=== PATIENT | male | born 1980 | race Caucasian/White ===

== ENCOUNTER 2018-06-14 22:23 | Emergency (ER) | payer OTHER ==
[~2018-06-14] VITALS: Ht 167.6 cm; Wt 70.3 kg
[~2018-06-14 22:23] MED LIST: Augmentin 875-1 EACH PO; HYDACE5 PO; IBUP600 PO; IBUP800 PO; LORA1 PO; MARIJUANA; META800 PO; NAPR500 PO; NAPR550 PO; Norco 5-325 Ta1 EACH PO; Ocuflox5 ML RIGHTEYE; PRED20 PO; QUET300 PO; Robaxin500 MG PO; SERT50 PO
[2018-06-14 23:09] LABS: Source, Urine Clean Catch
[2018-06-14 23:12] LABS: BASOPHILS ABSOLUTE AUTO 0.02 K/mm3 (0.00-0.23); BASOPHILS PERCENT AUTO 0 % (0-2); EOSINOPHILS ABSOLUTE AUTO 0.06 K/mm3 (0.00-0.68); EOSINOPHILS PERCENT AUTO 1 % (0-6); Hematocrit 44.6 % (37.0-53.0); Hemoglobin 14.8 g/dL (13.5-17.5); IMMATURE GRAN ABSOLUTE AUTO 0.01 K/mm3 (0.00-0.10); IMMATURE GRAN PERCENT AUTO 0 % (0-1); LYMPHOCYTES ABSOLUTE AUTO 0.93 K/mm3 (0.84-5.20); LYMPHOCYTES PERCENT AUTO 18 % (21-46); MONOCYTES ABSOLUTE AUTO 0.63 K/mm3 (0.16-1.47); MONOCYTES PERCENT AUTO 12 % (4-13); Mean Corpuscular HGB 33.4 pg (26.0-34.0); Mean Corpuscular HGB Conc 33.2 g/dL (31.5-36.5); Mean Corpuscular Volume 101 fL (80-100); Mean Platelet Volume 9.4 fL (9.1-12.4); NEUTROPHILS ABSOLUTE AUTO 3.56 K/mm3 (1.96-9.15); NEUTROPHILS PERCENT AUTO 68 % (41-73); Platelet Count 125 K/mm3 (150-400); RDW Coefficient Variation 12.4 % (11.7-14.2); RDW Standard Deviation 46.9 fL (35.1-46.3); Red Blood Cell Count 4.43 M/mm3 (4.30-5.90); White Blood Cell Count 5.21 K/mm3 (4.00-11.30)
[2018-06-14 23:14] LABS: Bilirubin, Urine Neg (Neg); Blood, Urine 2+ (Neg); Glucose Qualitative, Urine Neg (Neg); Ketones, Urine Neg (Neg); Leukocyte Esterase, Urine Neg (Neg); Nitrite, Urine Neg (Neg); Protein, Urine Neg (Neg); Urobilinogen, Urine NORM (Normal)
[2018-06-14 23:17] LABS: Appearance, Urine Clear (Clear); Color, Urine Yellow (P-Yellow)
[2018-06-14 23:22] LABS: Bacteria Not Seen /hpf; Red Blood Cells, Urine 0-2 /hpf (0-2); Squamous Epithelial Cells Few /hpf (Few); White Blood Cells, Urine Not Seen /hpf (0-5)
[2018-06-14 23:23] LABS: U Amphetamine Screen Not Detected; U Barbituate Screen Not Detected; U Benzodiazapine Screen Not Detected; U Buprenorphine Screen Not Detected; U Cannabinoids Screen Not Detected; U Cocaine Screen Not Detected; U Methadone Screen Not Detected; U Methamphetamine Screen Not Detected; U Opiates Screen Not Detected; U Oxycodone Screen Not Detected; U Phencyclidine Screen Not Detected; U Propoxyphene Screen Not Detected
[2018-06-14 23:34] LABS: Alanine Aminotransfer (ALT/SGP 53 U/L (12-78); Albumin/Globulin Ratio 1.1 (0.8-1.8); Alk Phos 86 U/L (50-136); Anion Gap 12 mmol/L (6-16); Aspartate Aminotrans (AST/SGOT 83 U/L (12-37); Bilirubin, Total 0.2 mg/dL (0.1-1.0); Blood Urea Nitrogen 6 mg/dL (8-24); Bun/Creatinine Ratio 7.1 (12.0-20.0); CO2, Blood 22 mmol/L (21-32); Calcium, Blood 8.1 mg/dL (8.5-10.1); Chloride, Blood 104 mmol/L (98-108); Creatinine, Blood 0.84 mg/dL (0.60-1.20); Globulin, Blood 3.6 g/dL (2.2-4.0); Glomerular Filtration Rate >60 (60-); Glucose, Blood 86 mg/dL (70-99); Potassium, Blood 4.1 mmol/L (3.5-5.5); Sodium, Blood 138 mmol/L (136-145); Total Protein, Blood 7.6 g/dL (6.4-8.2)
[2018-06-14 23:39] LABS: Ethanol (Alcohol), Blood, Med 336 mg/dL
== END 2018-06-15 01:33 | disposition home or self-care (01) ==
LOC: ER 22:23
PROVIDERS: Emergency Medicine
DX: F10.10 Alcohol abuse, uncomplicated (principal); F32.9 Major depressive disorder, single episode, unspecified; F41.9 Anxiety disorder, unspecified; R53.81 Other malaise; Y90.8 Blood alcohol level of 240 mg/100 ml or more; Z87.891 Personal history of nicotine dependence
CPT/HCPCS: 80053; 81001; 83690; 85025; 99283; G0480

== ENCOUNTER 2019-11-04 21:44 | Emergency (ER) | payer OTHER ==
[~2019-11-04] VITALS: Ht 165.1 cm; Wt 69.8 kg
== END 2019-11-04 22:14 ==
LOC: ER 21:44
DX: S01.01XA Laceration without foreign body of scalp, initial encounter (principal); W22.8XXA Striking against or struck by other objects, initial encounter
CPT/HCPCS: 12001; 99283-25

== ENCOUNTER 2019-11-19 11:21 | Emergency (ER) | payer OTHER ==
[~2019-11-19] VITALS: Ht 165.1 cm; Wt 70.3 kg
[2019-11-19] MEDS ORDERED: Amoxicillin500 MG PO (12:04)
== END 2019-11-19 12:12 | disposition home or self-care (01) ==
LOC: ER 11:21
DX: S01.312A Laceration without foreign body of left ear, initial encounter (principal); F41.9 Anxiety disorder, unspecified; F32.9 Major depressive disorder, single episode, unspecified; Z87.891 Personal history of nicotine dependence; Z79.2 Long term (current) use of antibiotics; Y04.0XXA Assault by unarmed brawl or fight, initial encounter
CPT/HCPCS: 99282

== ENCOUNTER 2024-11-12 00:41 | Inpatient (IN) | payer OTHER ==
[~2024-11-12] VITALS: Ht 165.1 cm; Wt 60.1 kg
[~2024-11-12 00:41] MED LIST changes: +Amoxicillin500 MG PO; +BACTRIM DS TAB1 EAC1 PO
[2024-11-12] MEDS ORDERED: FentaNYL Citrate 50 MCG/ML 2 ML Injection IV ONE (01:00)
[2024-11-12 01:14] LABS: BASOPHILS ABSOLUTE AUTO 0.01 K/mm3 (0.00-0.23); BASOPHILS PERCENT AUTO 0 % (0-2); EOSINOPHILS PERCENT AUTO 0 % (0-6); Hematocrit 32.2 % (37.0-53.0); Hemoglobin 11.4 g/dL (13.5-17.5); IMMATURE GRAN ABSOLUTE AUTO 0.04 K/mm3 (0.00-0.10); IMMATURE GRAN PERCENT AUTO 0 % (0-1); LYMPHOCYTES ABSOLUTE AUTO 0.31 K/mm3 (0.84-5.20); LYMPHOCYTES PERCENT AUTO 3 % (21-46); MONOCYTES ABSOLUTE AUTO 0.75 K/mm3 (0.16-1.47); MONOCYTES PERCENT AUTO 8 % (4-13); Mean Corpuscular HGB 34.5 pg (26.0-34.0); Mean Corpuscular HGB Conc 35.4 g/dL (31.5-36.5); Mean Corpuscular Volume 98 fL (80-100); Mean Platelet Volume 12.3 fL (9.1-12.4); NEUTROPHILS PERCENT AUTO 89 % (41-73); RDW Coefficient Variation 14.5 % (11.7-14.2); RDW Standard Deviation 52.3 fL (35.1-46.3); White Blood Cell Count 9.61 K/mm3 (4.00-11.30)
[2024-11-12 01:36] LABS: Platelet Count 27 K/mm3 (150-400)
[2024-11-12 02:00] LABS: Albumin, Blood 3.6 g/dL (3.4-5.0); Bilirubin, Total 1.2 mg/dL (0.1-1.0); Bun/Creatinine Ratio 9.9 (12.0-20.0); Calcium, Blood 7.8 mg/dL (8.5-10.1); Creatinine, Blood 1.11 mg/dL (0.60-1.20); Globulin, Blood 3.5 g/dL (2.2-4.0); Total Protein, Blood 7.1 g/dL (6.4-8.2)
[2024-11-12] MEDS ORDERED: Acetaminophen 325 MG TABLET PO PRN (02:35)
[2024-11-12] MEDS ORDERED: FentaNYL Citrate 50 MCG/ML 2 ML Injection IV PRN (02:35)
[2024-11-12] MEDS ORDERED: Naloxone HCl 0.4MG / ML 1ML Vial IV PRN (02:35)
[2024-11-12] MEDS ORDERED: Ondansetron HCl 2 MG / ML 2ML Vial IV PRN (02:35)
[2024-11-12] MEDS ORDERED: OxyCODONE HCL 5 MG TAB PO PRN (02:35)
[2024-11-12] MEDS ORDERED: NS 1,000 ML IV SCH (03:00)
[2024-11-12 04:08] VITALS: BP 137/94
[2024-11-12 04:36] LABS: BASOPHILS ABSOLUTE AUTO 0.01 K/mm3 (0.00-0.23); BASOPHILS PERCENT AUTO 0 % (0-2); EOSINOPHILS PERCENT AUTO 0 % (0-6); Hematocrit 32.8 % (37.0-53.0); Hemoglobin 11.7 g/dL (13.5-17.5); IMMATURE GRAN ABSOLUTE AUTO 0.02 K/mm3 (0.00-0.10); IMMATURE GRAN PERCENT AUTO 0 % (0-1); LYMPHOCYTES ABSOLUTE AUTO 0.62 K/mm3 (0.84-5.20); LYMPHOCYTES PERCENT AUTO 7 % (21-46); MONOCYTES PERCENT AUTO 9 % (4-13); Mean Corpuscular HGB 34.3 pg (26.0-34.0); Mean Corpuscular HGB Conc 35.7 g/dL (31.5-36.5); Mean Corpuscular Volume 96 fL (80-100); Mean Platelet Volume 10.9 fL (9.1-12.4); NEUTROPHILS ABSOLUTE AUTO 7.93 K/mm3 (1.96-9.15); NEUTROPHILS PERCENT AUTO 85 % (41-73); RDW Coefficient Variation 14.4 % (11.7-14.2); Red Blood Cell Count 3.41 M/mm3 (4.30-5.90); White Blood Cell Count 9.38 K/mm3 (4.00-11.30)
[2024-11-12 04:42] LABS: Platelet Count 25 K/mm3 (150-400)
[2024-11-12 05:04] LABS: Albumin, Blood 3.8 g/dL (3.4-5.0); Albumin/Globulin Ratio 1.1 (0.8-1.8); Bilirubin, Total 1.4 mg/dL (0.1-1.0); Bun/Creatinine Ratio 8.7 (12.0-20.0); Calcium, Blood 8.1 mg/dL (8.5-10.1); Creatinine, Blood 1.26 mg/dL (0.60-1.20); Globulin, Blood 3.6 g/dL (2.2-4.0); Magnesium, Blood 2.4 mg/dL (1.6-2.4); Potassium, Blood 4.1 mmol/L (3.5-5.5); Total Protein, Blood 7.4 g/dL (6.4-8.2)
--- NOTE | 2024-11-12 05:38 | NUR ---
PATIENT IS A NEW ADMIT FROM THE ED. ALERT ORIENTED AND ONE ASSIST FROM GURNEY TO BED. DENIES CHEST PAIN, SOB, AND N/V. BILATERAL PERIORBITAL HEMATOMA'S. BLEEDING FROM LEFT EAR AT TIMES WITH DRIED SCABS. SCATTER BRUISING/CONTUSIONS THROUGHOUT FROM HEAD TO TOE. SCABS BLE'S. LAB PLT 25-27 cL. CONSENT TO PHOTOGRAPH IN CHART AND PICTURES TAKEN. TELEMETRY PLACED AND TECH REPORTS NSR 90'S. WHEN UP TO BR HR TO 140 AND BACK DOWN X ONE. NS STARTED @ 150mL/HR. REPORTED RIB PAIN X ONE AND OXYCODONE 5 MG GIVEN PER EMAR. PATIENT REPORTS A TREE FELL ON HIM X 3-4 DAYS AGO. DENIES HE WAS IN AN ALTERCATION OR PHYSICAL VIOLENCE MULTIPLE TIMES WHEN ASKED. ORIENTED TO ROOM AND CALL LIGHT SYSTEM. COOPERATIVE WITH CARE. WCTM.
[2024-11-12 07:30] LABS: International Normalized Ratio 0.92; Prothrombin Time Results 10.2 Sec (9.7-11.5)
[2024-11-12 08:03] VITALS: BP 127/79
[2024-11-12] MEDS ORDERED: Docusate Sodium 100 MG Cap PO SCH (09:00)
[2024-11-12] MEDS ORDERED: HyDROXyzine HCl 25 MG Tab PO PRN (09:25)
[2024-11-12] MEDS ORDERED: Nicotine 21 MG PATCH TOP SCH (10:00)
[2024-11-12] MEDS ORDERED: LORazepam 2 MG/ML 1ML Injection IV PRN (10:30)
[2024-11-12] MEDS ORDERED: ChlordiazePOXIDE 25 MG Cap PO PRN (10:30)
[2024-11-12] MEDS ORDERED: Multivitamins 1 Tab PO SCH (11:00)
[2024-11-12] MEDS ORDERED: Thiamine HCl 100 MG Tab PO SCH (11:00)
[2024-11-12 16:30] VITALS: BP 151/93
--- NOTE | 2024-11-12 18:35 | NUR ---
SHIFT SUMMARY PT A&OX4, AMB W/ ASSIST, TOLERATING PO, VOIDING, AND PAIN MANAGED PER EMAR. PT HAD SVT TELE EVENTS X2 AND TACHY W/ MOVEMENT, THIS RN NOTIFIED DURING AM ROUND. PT ASYMPTOMATIC DURING EVENTS. CIWA 14 THIS AM AND MEDICATED PER EMAR. LAST CIWA 8 AND MEDICATED PER EMAR. NIX ROUNDED ON PT THIS SHIFT. PT PROVIDED AUTHORIZATION TO GIVE INFORMATION TO THE [facility] OFFICE, SEE CHART FOR DOCUMENTATION. CALL LIGHT WITHIN REACH AND BED ALARM ON FOR SAFETY. PT WAS IMPULSIVE AT TIMES AND REMOVED INFUSING FLUIDS AND WALKED THE POLK. PT REORIENTED TO CALL LIGHT AND EDUCATED TO HAVING STAFF ASSIST W/ AMB DUE TO UNSTEADY GAIT.
[2024-11-12 19:39] VITALS: BP 138/97
[2024-11-12] MEDS ORDERED: Carbamide Peroxide Otic Soln BOTHEARS SCH (21:00)
[2024-11-13 00:04] VITALS: BP 137/83
[2024-11-13 04:25] VITALS: BP 117/77
[2024-11-13] MEDS ORDERED: LORazepam 1 MG Tab PO PRN (04:40)
--- NOTE | 2024-11-13 05:53 | NUR ---
SHIFT SUMMARY PT ON CIWA PROTOCOL- MEDICATED PER EMAR FOR SCORES OF 9, 19, AND 10. PT WITH FAIRLY SEVERE TREMORS AND VERY POOR BALANCE- UNABLE TO AMBULATE INDEPENDENTLY DUE TO BALANCE ISSUES. ENCOURAGED PT TO USE FWW, BUT REFUSES TO AND UNABLE TO USE GAIT BELT DUE TO EXTENSIVE BRUISING/ RIB FX'S. PT IS VERY IMPULSIVE, TURNS OFF HIS BED ALARM AND CONTINUOUS O2 MONITOR. PROBE CHANGED ON O2 MONITOR X3 DUE TO HIS REMOVING PROBE. PT STATES SOME BLURRY VISIOIN RELATED TO EYE HEMATOMAS AND SWELLING. PT ALSO STATES SOME EAR "FULLNESS"- EAR DROPS GIVEN PER ORDER. BED ALARM ON, BED IN LOWEST POSITION, CALL LIGHT WITHIIN REACH, SIDERAILS UP X2.
[2024-11-13 06:40] LABS: Bun/Creatinine Ratio 18.3 (12.0-20.0); Calcium, Blood 8.5 mg/dL (8.5-10.1); Creatinine, Blood 0.93 mg/dL (0.60-1.20)
[2024-11-13] MEDS ORDERED: Potassium Chloride 20 MEQ TabCR PO ONE ×2 (07:40→14:05)
[2024-11-13 07:45] VITALS: BP 123/77
[2024-11-13] MEDS ORDERED: Lidocaine 4% 1 Patch TOP SCH (09:00)
[2024-11-13 09:16] LABS: Mean Platelet Volume 12.7 fL (9.1-12.4)
[2024-11-13 09:20] LABS: Platelet Count 26 K/mm3 (150-400)
--- NOTE | 2024-11-13 09:42 | NUR ---
TELE NOTIFIED THIS RN THAT PT'S QTC PROLONGED .51, PT ASYMPTOMATIC. THIS RN NOTIFIED DURING AM ROUND.
[2024-11-13 16:08] VITALS: BP 110/80
--- NOTE | 2024-11-13 17:32 | NUR ---
SHIFT SUMMARY PT HAD PROLONGED QTC THIS AM, AWARE, SEE PREVIOUS NOTE. CIWA 5 AND W/D REMAINS STABLE. HIV LAB PENDING. HEMATOLOGY CONSULTED FOR CRIT PLT. K LOW THIS AM AND ORAL K GIVEN PER ORDER. PT WORKED W/ PHYSICAL THERAPY, SEE THERAPY NOTE. PT REMAINS TO HAVE UNSTEADY GAIT AND BE A RISK FOR FALLS. NICOLE RN ESCOURTED PT'S BROTHER FROM ICU TO PT'S ROOM FOR VISIT THIS AFTERNOON. PT BECAME TEARFUL AND SOMNOLENT DURING VISIT. AFTER VISIT, THIS RN THERAPEUTICALLY COMMUNICATED W/ PT WHERE PT MADE DIRECT EYE CONTACT W/ ELIU RN AND STATED, "MY BROTHER", WHILE DEMONSTRATING A PUNCHING MOVEMENT TOWARD HIMSELF. THIS RN EDUCATED PT ABOUT ALCOHOL W/D AND IF PT WAS AGREEABLE TO AN INPATIENT [place] FACILITY. PT STATED, "I WILL THINK ABOUT IT." NO OTHER ACUTE CHANGES. CALL LIGHT WITHIN REACH AND 1:1 SITTER PRESENT.
[2024-11-13 19:22] VITALS: BP 107/75
[2024-11-13 23:53] VITALS: BP 110/81
[2024-11-14 04:02] VITALS: BP 112/81
[2024-11-14 05:10] LABS: Hematocrit 27.2 % (37.0-53.0); Hemoglobin 9.2 g/dL (13.5-17.5); Mean Corpuscular HGB 34.7 pg (26.0-34.0); Mean Corpuscular HGB Conc 33.8 g/dL (31.5-36.5); Mean Platelet Volume 11.9 fL (9.1-12.4); RDW Coefficient Variation 14.3 % (11.7-14.2); RDW Standard Deviation 53.9 fL (35.1-46.3); Red Blood Cell Count 2.65 M/mm3 (4.30-5.90); White Blood Cell Count 4.11 K/mm3 (4.00-11.30)
[2024-11-14 05:19] LABS: Mean Corpuscular Volume 103 fL (80-100)
[2024-11-14 05:21] LABS: Platelet Count 31 K/mm3 (150-400)
[2024-11-14 05:24] LABS: Bun/Creatinine Ratio 14.6 (12.0-20.0); Calcium, Blood 8.7 mg/dL (8.5-10.1); Creatinine, Blood 0.75 mg/dL (0.60-1.20); Potassium, Blood 3.7 mmol/L (3.5-5.5)
--- NOTE | 2024-11-14 06:03 | NUR ---
SHIFT SUMMARY PT SLEPT INTERMITTENTLY DURING THE NIGHT. PT IMPULSIVE AND WEAK WITH BALANCE DIFFICULTIES. ENCOURAGED PT TO USE WALKER WHEN UP, BUT HAS MUCH TROUBLE USING THE WALKER SAFELY. PT REFUSING CONTINUOUS PULSE OX. SITTER AT BEDSIDE FOR SAFETY. PT'S FACE LESS SWOLLEN THAN YESTERDAY. MEDICATED X2 FOR CHEST/RIB PAIN WITH OXCODONE PER EMAR. PT'S CIWA SCORES WERE 10, 6, 8- MEDICATED PER EMAR. BED IN LOWEST POSITION, CALL LIGHT WIHIN REACH, SIDERAILS UP X2.
--- NOTE | 2024-11-14 07:09 | NUR ---
PATIENT AWOKE AND BECAME DISORIENTED. HE WAS LOOKING FOR HIS [place] SWEATSHIRT WITH THE [place] ON IT, THE SWEATSHIRT DOES NOT APPEAR TO BE HERE. SURE ENOUGH, THE PATIENT PARTIALLY FELL BETWEEEN HIS BED AND THE COUCH, I WAS ABLE TO LIFT HIM UP BY HIS GOWN AND SAT HIM BACK ON THE BED. HE THEN LAYED DOWN.
[2024-11-14 08:09] VITALS: BP 92/65
--- NOTE | 2024-11-14 09:07 | NUR ---
PATIENT SEEMS A LITTLE BETTER SINCE TWO HOURS AGO BUT HE DID INSIST ON GOING TO THE TOILET, 1 - 2 PERSON ASSIST. HE NEARLY FELL OFF THE TOILET HE TRIED TO WIPE HIMSELF. VERY WOBBLY GOING BACK TO BED. HE IS ALSO VERY EMOTIONAL, CRIES EASILY.
--- NOTE | 2024-11-14 11:06 | NUR ---
PATIENT IS OFF AND ON SLEEPING, STILL VERY WOBBLY. HAS OPTED TO HAVE A ICE CLOTH ON HIS NECK WELL HIS LEFT EAR.
[2024-11-14 12:05] LABS: Percent Saturation 44.3 % (20.0-50.0)
[2024-11-14 13:43] VITALS: BP 123/86
--- NOTE | 2024-11-14 15:40 | NUR ---
PATIENT IS STILL IMPULSIVE WHEN IT COMES TO GOING TO THE BATHROOM. EACH TIME I HAVE HAD TO SIT HIM BACK DOWN SO THAT I CAN APPLY THE BELT AND PLACE THE FWW. THIS TIME ON THE WAY TO THE TOILET THE PATIENT STUMBLED FORWARD AND HIT HIS FACE ON THE DOOR JAM. HE WAS WEARING THE GAIT BELT AND WAS HOLDING ONTO THE FWW AND I HAD A HOLD OF THE BELT BUT HE BENT AT THE WAIST AND THATS HOW HE HIT HIS FACE. HE INSISTS ON WEARING THE BELT BELOW HIS WAIST, THAT WILL CHANGE BACK TO ABOVE HIS WAIST.
--- NOTE | 2024-11-14 16:24 | NUR ---
PATIENT AWOKE FROM HIS NAP AND PROCEEDED TO TRY TO CLIMB OUT OF BED ON THE SIDE THAT THE SIDERAIL IS UP. I WAS ABLE TO ENCOURAGE HIM TO NOT GET OUT THAT WAY, WHEN HE BROUGHT HIS LEGS BACK ONTO THE BED HE TOPPLED BACKWARDS AND HIT HIS HEAD ON THE EDGE OF HIS TABLE. THERE IS NO BLOOD OR ABRASION BUT HE THINKS HE IS BLEEDING.
--- NOTE | 2024-11-14 16:36 | NUR ---
PATIENT HAD AGAIN BUMPED HIS HEAD WHEN HE PROCEEDED TO SIT ON THE EDGE OF THE BED AND FELL BACKWARDS HITTING HIS HEAD ON THE ARMRAIL
[2024-11-14 16:45] VITALS: BP 112/84
--- NOTE | 2024-11-14 18:28 | NUR ---
SHIFT SUMMARY PT CONT TO ACTIVELY W/D AND BE MEDICATED PER EMAR. PT BECAME AGITATED W/ 1:1 SITTER AND ATTEMPTED TO LEAVE. PT CONT TO BE UNSTEADY AND UNABLE TO AMB OOB SAFELY. THIS RN AND FUEL DISTRIBUTION SYSTEM OPERATOR KASHMIR EDUCATED PT ABOUT LEAVING AMA. PT AGREEABLE TO STAY IF 1:1 SITTER REPLACED W/ NEW SITTER. NEW SITTER WAS PLACED. PLT CONT TO BE CRITICAL LOW. HIV LAB PENDING. NO OTHER ACUTE CHANGES.
--- NOTE | 2024-11-14 18:32 | NUR ---
PATIENT BECAME AGITATED AFTER HIS NAP AND WAS CONSTANTLY TRYING TO GET UP, HE NEARLY FELL NUMEROUS TIMES. I KEPT HIM FROM FALLING. HE DISCOVERED THE PHONE IN HIS ROOM AND TRIED CALLING HIS MOM. HE FINALLY RELENTED AND LET ME HELP HIM DIAL HER #. THEY SPOKE FOR A FEW MINUTES. ONCE HE WAS OFF THE PHONE, HE PROCEEDED TO GET DRESSED AND PULL HIS TELLY OFF AND TOLD ME HIS MOM WAS COMING TO PICK HIM UP. BOTH NURSE AND CHARGE NURSE BECAME INVOLVED. HE FELT BECAUSE I WAS CONSTANTLY KEEPING HIM FROM FALLING THAT I WAS IN HIS FACE AND HE DID NOT WANT ME HIS PHYSICAL MEDICINE PHYSICIAN ANYMORE. I SWAPPED WITH ANOTHER PHYSICAL MEDICINE PHYSICIAN.
[2024-11-14 19:34] VITALS: BP 118/81
--- NOTE | 2024-11-14 20:49 | NUR ---
PT RESTING AT THIS TIME IN BED. CLINICAL SITTER AT BEDSIDE.
[2024-11-14] MEDS ORDERED: ChlordiazePOXIDE 25 MG Cap PO PRN (20:50)
[2024-11-14] MEDS ORDERED: LORazepam 2 MG/ML 1ML Injection IV PRN (20:50)
[2024-11-14] MEDS ORDERED: dexmedeTOMIDine 100 ML IV SCH (21:00)
[2024-11-15 00:13] VITALS: BP 109/79
[2024-11-15 04:03] VITALS: BP 107/81
[2024-11-15 05:07] LABS: Hematocrit 26.9 % (37.0-53.0); Mean Corpuscular HGB 34.5 pg (26.0-34.0); Mean Corpuscular HGB Conc 33.5 g/dL (31.5-36.5); Mean Corpuscular Volume 103 fL (80-100); Mean Platelet Volume 11.7 fL (9.1-12.4); Platelet Count 55 K/mm3 (150-400); RDW Coefficient Variation 14.1 % (11.7-14.2); RDW Standard Deviation 52.9 fL (35.1-46.3); Red Blood Cell Count 2.61 M/mm3 (4.30-5.90); White Blood Cell Count 4.26 K/mm3 (4.00-11.30)
[2024-11-15 05:54] LABS: Bun/Creatinine Ratio 9.3 (12.0-20.0); Calcium, Blood 9.1 mg/dL (8.5-10.1); Creatinine, Blood 0.75 mg/dL (0.60-1.20); Potassium, Blood 3.5 mmol/L (3.5-5.5)
--- NOTE | 2024-11-15 06:22 | NUR ---
SHIFT SUMMARY: Pt admitted for rib FX and is a full code. Is alert and able to make needs known. ADLs have been a mix of SBA -1p. Pain has been managed with PRN medication. Telly noted sinus in the 80s with no events while worn. The shift started off with the PT attempting to walk through his room with a severe stagger and just enough balance not to fall. But was noted to sit on the bed side and roll back and almost off the other side of the bed a couple of times or lean forward enough while sitting on the bed to fall forward. The only thing that stopped the fall forward was the bedside table. Then other times he would stagger to the point staff would have to assist with regaining his balance before he would fall. CIWA scores have ranged from 4 while resting up to 21 before medications fully set in. has been averaging between 8 -12. Has left room and attempted to walk down the hernandez a couple of times and was hard to redirect back to room. Wore telly for part of the shift. But was not able to convince PT to wear telly again after he took it off about 0330.
--- NOTE | 2024-11-15 06:31 | NUR ---
Patient was up and down all night. Frequently refused walker and gait belt. I was able to prevent several falls by holding onto him. He did go down to his knees assisted once and forward into his bedside table. Very emotional and confused. He's been looking for a sweatshirt and shoes all night. When he talks it is hard to hear and understand. Took his tele off but after a few hours was compliant with putting it back on.
[2024-11-15 07:53] VITALS: BP 113/76
[2024-11-15 16:24] VITALS: BP 101/77
--- NOTE | 2024-11-15 16:35 | NUR ---
SHIFT SUMMARY PATIENT SKIN BRUISED BASICALLY HEAD TO TOE. CIWA PROTOCOL ORDERED, REQUIRED MEDICATION THROUGHOUT SHIFT. PATIENT HITTING AND PUSHING STAFF, NOT ABLE TO ADHERE TO SAFETY INSTRUCTIONS, VARYING DEGREES OF ORIENTATION THROUGHOUT SHIFT. CALL LIGHT IN REACH, ABLE TO SHOWER WITH ASSISTANCE. 1:1 IN ROOM. EATING WELL, NO SWALLOW CONCERNS. ACCEPTING OF ORAL MEDICATIONS. PATIENT ALLOWED IV ACCESS. ABLE TO MAKE NEEDS KNOWN AT TIMES.
--- NOTE | 2024-11-15 19:51 | NUR ---
this LN noted pt coming out of room attempting to bring his dinner plate out. he made it to about the middle of the hallway then started to fall forward. almost falling into the wall oppisite of his room. this LN was able to stop him from falling into the fall and resteady him. he was guided back to bed with the help of this LN to keep him steady. bed alarm was turned on by this LN right after shift change. bed alarm was noted to be off when he was seen coming out of room.
[2024-11-15 20:56] VITALS: BP 111/87
--- NOTE | 2024-11-15 22:53 | NUR ---
COVERING BREAK NURSE, REQUESTED BY BRITT TO GIVE ATIVAN AND LIBRIUM - PULLED MEDICATION - PT IS CURRENTLY SLEEPING. RESPIRATIONS EVEN AND UNLABORED. WILL REPORT TO OFF TO BRITT WHEN HE RETURNS FROM HIS 15 MINUTE BREAK THAT MEDICATIONS WEREN'T ADMINISTERED, PT IS SLEEPING.
[2024-11-16 04:27] VITALS: BP 98/82
[2024-11-16 05:22] LABS: Hematocrit 26.8 % (37.0-53.0); Hemoglobin 8.8 g/dL (13.5-17.5); Mean Corpuscular HGB 34.5 pg (26.0-34.0); Mean Corpuscular HGB Conc 32.8 g/dL (31.5-36.5); Mean Corpuscular Volume 105 fL (80-100); Platelet Count 99 K/mm3 (150-400); RDW Coefficient Variation 14.1 % (11.7-14.2); RDW Standard Deviation 53.5 fL (35.1-46.3); Red Blood Cell Count 2.55 M/mm3 (4.30-5.90); White Blood Cell Count 4.17 K/mm3 (4.00-11.30)
--- NOTE | 2024-11-16 06:33 | NUR ---
SHIFT SUMMARY: Pt admitted for rib FX and is a full code. Is alert and able to make needs known. ADLs have been a mix of SBA -1p. Pain has been managed with PRN medication. CIWA scores have ranged from 4 while resting has been averaging about 12 while awake. Has left room and attempted to walk down the hernandez a couple of times and was hard to redirect back to room. Was much easier to redirect last night than the night before.
[2024-11-16 07:40] VITALS: BP 105/80
[2024-11-16 16:13] VITALS: BP 107/78
--- NOTE | 2024-11-16 16:32 | NUR ---
SHIFT SUMMARY PATIENT A/O X4. 1:1 SITTER IN ROOM FOR SAFETY/IMPULSE CONTROL/BED EXITING. NOT USING CALL LIGHT AT THIS TIME, ENCOURAGED SEVERAL TIMES. CIWAS HAVE BEEN LOW ENOUGH THIS SHIFT TO NOT MEDICATE UP TO THIS TIME. PATIENT IS AMBULATING TO BATHROOM SEVERAL TIMES, CONTINUES TO REQUIRE 1 ASSIST, A LITTLE SHAKY AND UNSTEADY WHEN STANDING. NO HITTING OR PUSHING THIS SHIFT, PATIENT HAS BEEN MORE COOPERATIVE AND PLEASANT THROUGHOUT TODAY. IV INTACT. ACCEPTING OF PAIN MEDICATIONS FOR STERNUM AND RIB PAIN. NOT ALWAYS ABLE TO MAKE NEEDS KNOWN. EATING AND DRINKING WELL.
[2024-11-16 17:45] LABS: HIV 1,2 COMBO ANTIGEN/ANTIBODY Negative (Negative)
[2024-11-16 20:04] VITALS: BP 105/76
--- NOTE | 2024-11-16 20:41 | NUR ---
Break RN note: Patient slowly finishing dinner at edge of bed, reports 5/10 headache located behind his eyes, requesting pain meds. Some tremors visualized with arm extended. AOx3 and mildly anxious, thought it was Sunday (today is Sunday). CIWA of 11. Medicated per EMAR. Hand off returned to primary nurse.
[2024-11-17 02:25] VITALS: BP 110/77
[2024-11-17 04:54] LABS: Hematocrit 28.3 % (37.0-53.0); Hemoglobin 9.3 g/dL (13.5-17.5); Mean Corpuscular HGB 34.7 pg (26.0-34.0); Mean Corpuscular HGB Conc 32.9 g/dL (31.5-36.5); Mean Corpuscular Volume 106 fL (80-100); Mean Platelet Volume 9.7 fL (9.1-12.4); Platelet Count 163 K/mm3 (150-400); RDW Coefficient Variation 14.5 % (11.7-14.2); Red Blood Cell Count 2.68 M/mm3 (4.30-5.90); White Blood Cell Count 5.21 K/mm3 (4.00-11.30)
--- NOTE | 2024-11-17 05:51 | NUR ---
SHIFT SUMMARY: Pt admitted for rib FX and is a full code. Is alert and able to make needs known. ADLs have been a mix of SBA -1p. Pain has been managed with PRN medication. CIWA scores have been less than 8 through most of shift.
[2024-11-17 07:27] VITALS: BP 99/64
[2024-11-17 15:08] VITALS: BP 117/75
--- NOTE | 2024-11-17 16:37 | NUR ---
PATIENT A/OX3, DISORIENTED TO DATE AND FORGETFUL AT TIMES. VERY SOFT SPOKEN AND DIFFICULT TO UNDERSTAND AT TIMES. CIWA SCORES 5-9 THIS SHIFT MEDICATED WITH ATIVAN AND LIBRUM X1. PATIENT VERY IMPULSIVE AND UNSTEADY ON HIS FEET. RESISTANT TO USE FWW, BUT DOES MUCH BETTER WHEN USED. TOOK MULTIPLE WALKS IN HALLS TODAY AND ENCOURAGED TO EXERISES IN BED. NO OTHER NEW CONCERNS THIS SHIFT.
[2024-11-17 20:16] VITALS: BP 118/81
--- NOTE | 2024-11-18 02:00 | NUR ---
NURSING NOTE: PT AOX3 ADAMANTLY REQUESTING TO LEAVE AMA. INFORMED ABOUT THE TIME, THAT HE CAN WAIT UNTIL THE MORNING, AND THE DANGERS OF LEAVING. PROVIDER NOTIFIED AND EXPRESSED THE SAME. PT STILL REQUESTS TO LEAVE, DOESNT WANT ANY MEDICATIONS. PT SIGNED AMA PAPERS AND LEFT ON FOOT DOWN THE ELEVATORS. SECURITY NOTIFIED.
== END 2024-11-18 02:07 | disposition left against medical advice (07) | DRG 184 ==
LOC: ER 00:41 → MEDS 00:42
PROVIDERS: Emergency Medicine; Internal Medicine; Student in an Organized Health Care Education/Training Program; ADMIT Surgery
DX: S22.42XA Multiple fractures of ribs, left side, initial encounter for closed fracture (principal); E87.1 Hypo-osmolality and hyponatremia; E87.20 Acidosis, unspecified; N17.9 Acute kidney failure, unspecified; F10.230 Alcohol dependence with withdrawal, uncomplicated; S02.2XXA Fracture of nasal bones, initial encounter for closed fracture; S00.12XA Contusion of left eyelid and periocular area, initial encounter; S00.11XA Contusion of right eyelid and periocular area, initial encounter; Z53.29 Procedure and treatment not carried out because of patient's decision for other reasons; S80.12XA Contusion of left lower leg, initial encounter; S80.11XA Contusion of right lower leg, initial encounter; S40.022A Contusion of left upper arm, initial encounter; S00.432A Contusion of left ear, initial encounter; S00.431A Contusion of right ear, initial encounter; D69.59 Other secondary thrombocytopenia; F41.9 Anxiety disorder, unspecified; F32.A Depression, unspecified; D64.9 Anemia, unspecified; E87.6 Hypokalemia; H93.8X3 Other specified disorders of ear, bilateral; F17.210 Nicotine dependence, cigarettes, uncomplicated; Z98.1 Arthrodesis status; Z88.2 Allergy status to sulfonamides; W20.8XXA Other cause of strike by thrown, projected or falling object, initial encounter
CPT/HCPCS: 36415; 70450; 71260; 72125; 74177; 80048; 80053; 80320; 82550; 82607; 82728; 82746; 82947; 83540; 83550; 83605; 83735; 84484; 85025; 85027; 85049; 85384; 85610; 87389; 93005; 93010; 94760; 94762; 96374; 96375; 96376; 97110; 97116; 97162; 97165; 97535; 99285-25; A9270; G0378; J2060; J3010; J7030; Q9967

== ENCOUNTER → 2025-04-23 | Outpatient (CLI) | payer OTHER ==
[2025-04-23 13:50] LABS: BASOPHILS ABSOLUTE AUTO 0.03 K/mm3 (0.00-0.23); BASOPHILS PERCENT AUTO 0 % (0-2); EOSINOPHILS ABSOLUTE AUTO 0.09 K/mm3 (0.00-0.68); EOSINOPHILS PERCENT AUTO 1 % (0-6); Hematocrit 44.3 % (37.0-53.0); Hemoglobin 14.9 g/dL (13.5-17.5); Mean Corpuscular HGB Conc 33.6 g/dL (31.5-36.5); Mean Corpuscular Volume 98 fL (80-100); NRBC ABSOLUTE 0.00 K/mm3 (0.00-0.02); NRBC Auto 0.0 /100 WBC (0.0-0.2); Platelet Count 271 K/mm3 (150-400); RDW Coefficient Variation 13.4 % (11.7-14.2); RDW Standard Deviation 48.8 fL (35.1-46.3)
[2025-04-23 13:51] LABS: IMMATURE GRAN ABSOLUTE AUTO 0.02 K/mm3 (0.00-0.10); IMMATURE GRAN PERCENT AUTO 0 % (0-1); LYMPHOCYTES ABSOLUTE AUTO 1.59 K/mm3 (0.84-5.20); LYMPHOCYTES PERCENT AUTO 20 % (21-46); MONOCYTES ABSOLUTE AUTO 0.77 K/mm3 (0.16-1.47); MONOCYTES PERCENT AUTO 10 % (4-13); NEUTROPHILS ABSOLUTE AUTO 5.46 K/mm3 (1.96-9.15); NEUTROPHILS PERCENT AUTO 69 % (41-73)
[2025-04-23 14:06] LABS: Anion Gap 12.0 mmol/L (3-11); Blood Urea Nitrogen 7.0 mg/dL (8-24); CO2, Blood 29.0 mmol/L (21-32); Calcium, Blood 9.0 mg/dL (8.5-10.1); Chloride, Blood 102.0 mmol/L (98-108); Creatinine, Blood 1.07 mg/dL (0.60-1.20); Glucose, Blood 101.0 mg/dL (70-99); Potassium, Blood 4.6 mmol/L (3.5-5.5); Sodium, Blood 138.0 mmol/L (136-145); Uric Acid, Blood 5.9 mg/dL (3.5-7.2)
== END ==
LOC: LAB 13:44 → LAB SHORT 13:44
PROVIDERS: Chiropractor
DX: M79.674 Pain in right toe(s) (principal)
CPT/HCPCS: 80048; 84550; 85025